=== PATIENT | female | born 1940 | race Caucasian/White ===

== ENCOUNTER 2017-06-14 19:45 | Inpatient (IN) | payer MEDICARE, OTHER ==
[~2017-06-14] VITALS: Ht 172.7 cm; Wt 82.6 kg
--- NOTE | ~2017-06-14 | PR ---
[place], [place] PROGRESS NOTE NAME: KATHARINE MCDANIEL UNIT #: [id number] ROOM: 526 DOCTOR: BHARGAV ANDRES MD,NAV BIRTHDATE: [birth year] DOS: 06/17/2017 SUBJECTIVE: The patient was noted comfortable at this time, resting on the bed without any acute distress. Denies symptoms of chest pain or hemoptysis. OBJECTIVE: VITAL SIGNS: The patient has a normal temperature, respiratory rate recorded as 22, heart rate of 94, blood pressure 150/68. HEENT: Examination shows no acute change. NECK: Supple. CARDIOVASCULAR: S1, S2 is audible. LUNGS: The patient was noted without any wheezing or crackles at present time. ABDOMEN: Soft, nontender. EXTREMITIES: The patient noted without any acute edema. LABORATORY DATA: CBC today: WBC count 14.8, hemoglobin 11.3, hematocrit 34.3, platelet count was normal. BMP: Glucose 163, BUN and creatinine was normal. IMPRESSION: Stable respiratory status with acute exacerbation of chronic obstructive pulmonary disease for this patient noted partial reduction of respiratory symptoms. The cough has been noted decreased. The shortness of breath has been still noted for the patient with partial reduction, but not resolved completely to the baseline. PLAN OF MANAGEMENT: Continuation of bronchodilators, oxygen supplementation, corticosteroids. The patient current dose. Monitor respiratory status closely. NAV DURANT MD CM:PNTRANS [id number] NAV ANDRES MD 06/17/17 1239 interface
--- NOTE | ~2017-06-14 | PR ---
[place], [place] PROGRESS NOTE NAME: KATHARINE MCDANIEL UNIT #: [id number] ROOM: 526 DOCTOR: BHARGAV ANDRES MD,NAV BIRTHDATE: [birth year] DOS: 06/18/2017 SUBJECTIVE: The patient has been noted with unconsciousness at this time. She lapse to the unconscious in the last 24 hours. She has been comfortably resting otherwise, the family member including her present at bedside with the patient. OBJECTIVE: VITAL SIGNS: Normal temperature, respiratory rate 20, heart rate of 96, blood pressure 119/70. Pulse oxygen saturation on 4 liters nasal cannula 92% saturation. HEENT: Examination shows head was atraumatic. Eyes, no icterus. NECK: Supple. CARDIOVASCULAR: S1, S2 audible. LUNGS: The patient showed moderate decreased breath sounds, expiratory wheezing without any crackles. ABDOMEN: Soft, nontender. LABORATORY DATA: The patient's arterial blood gas, pH of 7.32, pCO2 of 63, pO2 125, 4 liter nasal cannula this morning. IMPRESSION: 1. The patient with progressive acute on chronic hypercapnic and hypoxic respiratory failure with exacerbation of chronic obstructive pulmonary disease, change in mental status secondary to respiratory failure and hypercapnia. PLAN OF MANAGEMENT: The current assessment, management discussed with patient's . The patient's code status noted comfort care. The BiPAP treatment was offered for this patient, but he stated this was not the patient's wish. The patient continue to be treated at this time with current treatment, prognosis of the patient remains guarded. NAV DURANT MD CM:PNTRANS [id number] NAV ANDRES MD 06/19/17 0056 interface
--- NOTE | ~2017-06-14 | PR ---
[place], [place] PROGRESS NOTE NAME: KATHARINE MCDANIEL UNIT #: [id number] ROOM: 526 DOCTOR: BHARGAV ANDRES MD,NAV BIRTHDATE: [birth year] DOS: 06/19/2017 SUBJECTIVE: The patient was noted to be awake and arousable. The patient awoke with commands. He has been noted essentially very weak and cannot speak because of that. Not noted with any distress this morning. OBJECTIVE: VITAL SIGNS: For the patient which has been recorded showed normal temperature, respiratory rate 20, heart rate of 113, blood pressure 158/81. The pulse oxygen saturation of the patient 4 liters 90% saturation. HEENT: No acute change. NECK: Supple. CARDIOVASCULAR: S1, S2 audible. LUNGS: Without any crackles. Diffuse expiratory wheezing with reduced breath sounds bilaterally. ABDOMEN: Soft, nontender. IMPRESSION: The patient with change in mental status with ongoing acute exacerbation of chronic obstructive pulmonary disease, acute tracheobronchitis. PLAN OF MANAGEMENT: No change in the plan of management. The patient has been assessed for hospice services, to be admitted under hospice services most likely today. No changes in medical management today would be advised. NAV DURANT MD CM:PNTRANS [id number] NAV ANDRES MD 06/20/17 0141 interface
--- NOTE | ~2017-06-14 | EKG ---
[place], [place] ELECTROCARDIOGRAM REPORT NAME: KATHARINE MCDANIEL UNIT #: [id number] ROOM: 526 DOCTOR: CINDY GONZALEZ,NEETA BIRTHDATE: [birth year] DOS: 06/18/2017 TIME: 0020 IMPRESSION: 1. Atrial fibrillation with controlled ventricular rate. 2. Old anterior infarction. 3. Lateral ST changes. 4. Normal QT interval. NEETA WHITE MD CM:EKGRPT:ELECTROCARDIOGRAM REPORT [id number] NEETA WHITE MD
--- NOTE | ~2017-06-14 | CON ---
[place], [place] REPORT OF CONSULTATION NAME[id number] UNIT #: [id number] ROOM: 526 DOCTOR: NEETA WHITE MD BIRTHDATE: [birth year] DOS: 06/18/2017 REASON FOR CONSULTATION: Atrial fibrillation. CONSULTING PHYSICIAN: Dr. Rodriguez. CLINICAL HISTORY: The patient is a 77-year-old patient with history of hypertension, COPD, home oxygen, was brought to the Emergency Room for progressive shortness of breath for the past few weeks. Apparently, she called her labor economist, Dr. Clinton and she was told to go to Emergency Room. She came to Emergency Room for shortness of breath and she was admitted to the hospital and Cardiology was consulted for her atrial fibrillation Her main complaint is probably shortness of breath and also some nonproductive cough and weakness. By the time of my examination, the patient was mostly asleep and lethargic hence history was obtained from the chart as well as her family members who were at bedside. Review of the 10 systems are limited due to patient's mental status and history was obtained from the chart and basically patient came for progressive shortness of breath, generalized weakness, and decreased appetite. Per family, there is no chest pain, palpitations, or syncope. PAST MEDICAL HISTORY: 1. COPD, the patient was on home oxygen. 2. ____ hypothyroidism. 3. Depression and anxiety. PAST SURGICAL HISTORY: History of bronchoscopy, cardiac catheterization. SOCIAL HISTORY: The patient does not smoke or drink. She was a former smoker for about 50 years, but she quit smoking. ALLERGIES: No known drug allergies. FAMILY HISTORY: Nil contributory. Mother from metastatic rectal cancer. Father from myocardial infarction at the age of 52. HOME MEDICATIONS: Reviewed. PHYSICAL EXAMINATION: VITAL SIGNS: Blood pressure 142/96, pulse 118, respirations 20. Weight 82.6 kilos, BMI 27.7. GENERAL: The patient was asleep and lethargic, but arousable and on questioning, she denies any chest pains. HEENT: Pupils are round and no jaundice. Tongue was moist. NECK: Supple, no distended neck veins. No carotid bruit. CHEST: Nontender. LUNGS: A few scattered rhonchi, diminished at bases. HEART: Irregularly irregular, tachycardic, grade 1/6 systolic murmur. ABDOMEN: Bowel sounds are normal. EXTREMITIES: Showed trace edema. Distal pulses are fair. SKIN: Warm and dry. No cyanosis, no clubbing. [place], [place] REPORT OF CONSULTATION NAME: KATHARINE MCDANIEL UNIT #: [id number] ROOM: 526 DOCTOR: CINDY GONZALEZ,NEETA BIRTHDATE: [birth year] NEUROLOGIC: Unable to assess due to patient's mental status and lethargy. DIAGNOSTIC TESTS: Her EKG, labs, and imaging studies reviewed as available. EKG, atrial fibrillation with rapid ventricular rate, old anterior infarction, anterolateral ST changes. Hemoglobin 11.3, potassium 3.9, creatinine 0.79, magnesium 2.7. TSH is 0.29, T4 1.4. IMPRESSION: 1. Atrial fibrillation with rapid ventricular rate, new onset. 2. High CHADS2-VASc score of at least 4. 3. Hypertension. 4. Possible sepsis. 5. Chronic obstructive pulmonary disease exacerbation. RECOMMENDATIONS: Continue her low dose metoprolol if she can take p.o. If not, we have to change her to IV. I had a long discussion with her family member regarding risks and benefits of the anticoagulation. Start Lovenox for now and again the family is agreeable. I would recommend Eliquis. Consider getting a 2D echo for LV function and to rule out thrombus. This conservative medical therapy with no aggressive testing ____ due to her other comorbid conditions and also family is considering comfort care. Pulmonary is also on case for her dyspnea, COPD exacerbation, and further treatment is per Dr. Rodriguez. NEETA WHITE MD CM:CONSTR:REPORT OF CONSULTATION 06/19/17 540 interface
--- NOTE | ~2017-06-14 | CON ---
[place], [place] REPORT OF CONSULTATION NAME: KATHARINE MCDANIEL [facility] #: [id number] UNIT #: [id number] ROOM: 526 DOCTOR: NAV NUGENT MD BIRTHDATE: [birth year] DOS: 06/15/2017 CONSULTATION REQUESTED BY: Hospitalist. REASON FOR CONSULTATION: Assessment for COPD. HISTORY OF PRESENT ILLNESS: A 77-year-old white female who has been noted with chronic dependency on prednisone with advanced end-stage COPD with emphysema as well as hypoxic respiratory failure. The patient has been treated about 2-3 times for the last 4-5 weeks because of recurrent exacerbation of chronic obstructive pulmonary disease. The patient has been treated with antibiotic recently and a burst of prednisone as well. She has been noted with worsening of respiratory symptoms, increased shortness of breath, coughing that has been noted intermittently, sometimes sputum expectoration, greenish in color. She denies symptoms of hemoptysis. Denies symptoms of chest pain. The wheezing was noted intermittently. She has been advised to go to the Emergency Room as she contacted me yesterday. She has been assessed in the Emergency Room, currently hospitalized for medical management of acute exacerbation of chronic obstructive pulmonary disease with failed outpatient treatment. REVIEW OF SYSTEMS: CONSTITUTIONAL: Fatigue and tiredness reported. Denies symptoms of fever or chills. EYES: Denies any burning, redness, or tenderness. EARS, NOSE, THROAT: No sore throat, hoarseness, otalgia, postnasal drainage. CARDIOVASCULAR: Denies anginal pain, edema, pain of the lower extremities. GASTROINTESTINAL: No dysphagia, nausea, vomiting, diarrhea, abdominal pain, hematemesis, melena, hematochezia, or dysphagia. Denies symptoms of abnormal weight loss. SKIN: Denies lesions or rashes. MUSCULOSKELETAL: The patient was noted without any acute deformities. There was no pain in any joints was noted. CENTRAL NERVOUS SYSTEM: The patient noted general weakness and fatigue, but there were no focal neurologic deficits, seizures, or tingling sensation of the extremities. Remaining systems were reviewed. They were noted all negative. PAST MEDICAL HISTORY: 1. Advanced COPD with FEV1 less than 20%. 2. Chronic hypoxic respiratory failure. 3. Degenerative arthritis of the spine. 4. Past cardiomyopathy, which was resolved. 5. Anxiety disorder. 6. Chronic hypoxic respiratory failure, use of oxygen 3-4 liter nasal cannula. 7. General anxiety disorder. 8. History of essential hypertension. 9. History of hypothyroidism. PAST SURGICAL HISTORY: 1. Cardiac catheterization. [place], [place] REPORT OF CONSULTATION NAME: KATHARINE MCDANIEL UNIT #: [id number] ROOM: 526 DOCTOR: NAV NUGENT MD BIRTHDATE: [birth year] 2. Therapeutic bronchoscopies. 3. Surgery on the broken leg. SOCIAL HISTORY: The patient is , has 2 children, lived at home. Smoking noted from the age of 18-year-old, smoked about a pack of cigarettes per day until 2011. There was no history of alcohol use or any illicit drugs. FAMILY HISTORY: The patient's father at the age of 52-year-old, complication of acute myocardial infarction. Mother at the age of 66-year-old, complication of metastatic rectal cancer. CURRENT MEDICATIONS: Administered noted use of Fosamax, trazodone, metoprolol succinate, multivitamin, lisinopril, levothyroxine, vitamin D, Dulera, Mucinex, IV Solu-Medrol 60 mg b.i.d., DuoNeb q.4 hours, Levaquin, and other p.r.n. medications administration. The patient also takes prednisone daily dose at home. DRUG ALLERGIES: Noted for no known drug allergies. PHYSICAL EXAMINATION: GENERAL: A 77-year-old female who has been noted currently awake and alert, sitting on the bed. Height of 5 feet 8 inches, weight 182 pounds, BMI 27, mera face is noted secondary to chronic use of steroids. VITAL SIGNS: Otherwise noted normal temperature, respiratory rate 23, heart rate 85-90, blood pressure 197/111-133/74. The pulse oxygen saturation noted on 4 liter nasal cannula 100%. HEENT: Neck was supple. Head was atraumatic. Eyes nonicterus. CARDIOVASCULAR SYSTEM: S1, S2 audible. LUNGS: Diffuse reduction in the breath sounds. The patient has poor air exchange with expiratory wheezing, no crackles. ABDOMEN: Soft, nontender. EXTREMITIES: Showed minimal ankle edema. SKIN: Visible skin, no lesions or rashes except for bruising of the skin secondary to chronic prednisone use was noted. CENTRAL NERVOUS SYSTEM: Cranial nerves 2-12 intact. No focal deficit. MUSCULOSKELETAL: Without any acute deformities. LABORATORY DATA: The lactic acid yesterday 1.3. CBC yesterday noted WBC count 13.8, hemoglobin and hematocrit normal, platelet count was normal. PT/INR yesterday was noted as normal. Troponin addition of 2 sets yesterday and this morning, normal. The chest x-ray shows severe COPD changes without any acute infiltration or other abnormalities. IMPRESSION: 1. The patient who has been currently admitted to the hospital, failed outpatient treatment with a history of chronic hypoxic respiratory failure with acute exacerbation and acute bronchitis. 2. History of chronic steroid use as well for the patient's mera facies noted with some effect of use of chronic steroid dependency. 3. History of hypertension, hypothyroidism, and general anxiety disorder. [place], [place] REPORT OF CONSULTATION NAME: KATHARINE MCDANIEL UNIT #: [id number] ROOM: 526 DOCTOR: BAHRGAV ANDRES MD,NAV BIRTHDATE: [birth year] PLAN OF TREATMENT: Agree with current use of corticosteroids 60 mg b.i.d. Continue current antibiotics, bronchodilators, monitor respiratory symptoms closely. Continue supportive therapy, plan of management. Further assessment changes of the patient will be made in the next 24 hours based on the improvement and resolution of the current symptom. Other supportive plan of therapy care and other medical management. Usual therapies. Supportive treatments. NAV DURANT MD CM:CONSTR:REPORT OF CONSULTATION 1400 06/16/17 0648 interface
--- NOTE | ~2017-06-14 | PR ---
[place], [place] PROGRESS NOTE NAME: KATHARINE MCDANIEL UNIT #: [id number] ROOM: 526 DOCTOR: NAV NUGENT MD BIRTHDATE: [birth year] DOS: 06/16/2017 SUBJECTIVE: She has been noted this morning, sitting outside of the bed, complaining of shortness of breath, stating that she is not feeling well. The patient denies symptoms of chest pain or any abdominal pain. Denies symptoms of any hemoptysis. OBJECTIVE: VITAL SIGNS: For the patient, which was recorded showed the temperature noted normal, respiratory rate 22, heart rate 94, blood pressure 121/73. Pulse oxygen saturation 4 L nasal cannula 99% saturation. HEENT: Shows head was atraumatic. Eyes nonicterus. NECK: Supple. CARDIOVASCULAR: S1, S2 is audible. LUNGS: The patient was noted without any crackles. Moderate decreased breath sounds noted with expiratory wheezing. ABDOMEN: Soft, nontender. EXTREMITIES: The patient was noted without any edema, clubbing or cyanosis. LABORATORY DATA: BMP this morning; glucose 147, normal BUN and creatinine. CBC this morning; WBC count 14.4, hemoglobin 10.6, hematocrit 32.2, platelet count were normal. IMPRESSION: 1. Ongoing acute exacerbation of chronic obstructive pulmonary disease, acute tracheobronchitis at this time noted with the use of the corticosteroids at this time. 2. History of chronic long-term dependent on the steroids as well. PLAN OF MANAGEMENT: No changes in the medical treatment would be necessary. Continue current dose of corticosteroids, bronchodilators. Monitor respiratory symptoms. The patient's respiratory status essentially remains unchanged with the physical examination as of yesterday. [place], [place] PROGRESS NOTE NAME: KATHARINE MCDANIEL UNIT #: [id number] ROOM: 526 DOCTOR: NAV NUGENT MD BIRTHDATE: [birth year] NAV DURANT MD CM:PNTRANS 1236 0040 NAV ANDRES MD 06/17/17 0037 interface
[2017-06-14 19:45] VITALS: BP 168/76
[~2017-06-14 19:45] MED LIST: 'XANAX0.5 MG PO; ALBUTEROL0.09 MG/A2 INH; ALBUTEROL2.5 MG/0.5 INH; AMBIEN CR12.5 MG PO; AMBIEN CR6.25 MG PO; AMBIEN10 M1 PO; AMBIEN5 MG PO; ASPIRIN ADULT L81 M3 PO; ATIVAN0.5 MG PO; CEFTIN250 MG PO; CEFUROXIME500 MG PO; DALI500T PO; DELTASONE10 MG PO; FISH OIL 10001000 MG PO; FISH OIL1000 MG PO; FLUONAZOLE100 MG PO; GUAIFENESIN600 MG PO; HUMULIN R100 U/ML SC; K-1010 MEQ PO; KCL PO; LASIX 40MG40 MG/4 ML IV; LASIX20 MG PO; LEVOTHYROXIN0.075 MG PO; LISINOPRIL HCTZ1 TA1 PO; LISINOPRIL-HYDR1 TA1 PO; LISINOPRIL10 MG PO; LISINOPRIL20 MG PO; LOPRESSOR25 MG PO; LOVENOX40 MG/0.4 SC; METOPROLOL SUCC50 M1 PO; MILK OF MA1200 MG/5 PO; MIRALAX17 GM/DOSE PO; MULTIPLE VITAMI1 TAB PO; NITROSTAT0.4 MG SL; Nizoral 2%15 GM T; ORASONE5 MG PO; PHILLIPS' COLO1 EACH PO; PLAVIX300 MG PO; POTASSIUM20 MEQ PO; PREDNISONE10 MG PO; PROAIR HFA8.5 GM INH; PROVENTIL0.09 MG/A1 INH; RITE AID MAGNE500 MG PO; RITE AID MELATON5 MG PO; SERTRALINE50 MG PO; SOLU-MEDROL40 MG IV; SPIRIVA -- 3018 MCG PO; SPIRIVA18 MCG PO; SYMBICORT1 AE1 INH; TOPROL XL50 MG PO; TRAZODO50 MG PO; TUDORZA PRESSAIR INH; TYLENOL325 M2 PO; TYLENOL650 MG R; ULTRAM50 MG PO; VANCOCIN1000 MG/25 IV; VENTOLIN0.09 MG/AC INH; VITAMIN D1000 IU PO; VITAMIN D400 I1 PO; XANAX0.25 MG PO; XANAX0.5 MG PO; ZITHROMAX Z PA250 MG PO; ZITHROMAX250 MG PO; ZOLOFT100 MG PO
[2017-06-14] MEDS ORDERED: SYMB160 INH (19:58)
[2017-06-14] MEDS ORDERED: PROAIR HFA8.5 GM INH (19:58)
[2017-06-14] MEDS ORDERED: XANAX0.5 MG PO (19:59)
[2017-06-14] MEDS ORDERED: PREDNISONE5 MG PO (19:59)
[2017-06-14] MEDS ORDERED: TRAZODONE150 MG PO (20:00)
[2017-06-14] MEDS ORDERED: ULTRAM50 MG PO (20:00)
[2017-06-14] MEDS ORDERED: L-THYROXINE PO (20:02)
[2017-06-14] MEDS ORDERED: METOPROLOL SUCC25 M2 PO (20:02)
[2017-06-14] MEDS ORDERED: SPIRIVA RESPIMAT4 GM INH (20:03)
[2017-06-14] MEDS ORDERED: FOSAMAX70 M1 PO (20:03)
[2017-06-14] MEDS ORDERED: ZESTRIL20 MG PO (20:03)
[2017-06-14] MEDS ORDERED: MELATONIN10 M2 PO (20:08)
[2017-06-14] MEDS ORDERED: MUCINEX ER600 MG PO (20:09)
[2017-06-14] MEDS ORDERED: TUSSIN DM 10 M237 M1 PO (20:10)
[2017-06-14] MEDS ORDERED: FISH OIL + D31 EACH PO (20:11)
[2017-06-14] MEDS ORDERED: [UNRECOGNIZED DRUG - OTHER] (20:11)
[2017-06-14] MEDS ORDERED: VITAMIN D31000 UNI1 PO (20:12)
[2017-06-14] MEDS ORDERED: MILK OF MA400 MG/52 PO (20:13)
[2017-06-14] MEDS ORDERED: ANIMAL CHEWS1 EACH PO (20:13)
[2017-06-14 20:36] LABS: BASO # 0.1 10*3/uL (0.0-0.1); BASO % 0.4 % (0.0-1.0); EOS # 0.8 10*3/uL (0.0-0.4); HEMATOCRIT 39.5 % (37.0-47.0); HEMOGLOBIN 12.6 g/dl (12.0-16.0); LYMPH # 1.1 10*3/uL (1.3-4.4); LYMPH % 8.4 % (27.0-41.0); MEAN CELL VOLUME 95.6 fl (81.0-99.0); MEAN CORPUSCULAR HGB 30.5 pg (27.0-31.0); MEAN CORPUSCULAR HGB CONC 31.9 g/dl (33.0-37.0); MEAN PLATELET VOLUME 10.1 fl (9.6-12.3); MONO # 0.7 10*3/uL (0.1-1.0); MONO % 5.7 % (3.0-9.0); NEUT # 10.2 10*3/uL (2.3-7.9); NEUT % 78.2 % (47.0-73.0); PLATELET COUNT AUTOMATED 299 10*3/uL (130-400); RED BLOOD COUNT 4.13 10*6/uL (4.10-5.10); RED CELL DISTRI WIDTH 12.5 % (0-14.5)
[2017-06-14 20:51] VITALS: BP 165/70
[2017-06-14 20:55] LABS: ALBUMIN 3.5 gm/dl (3.1-4.5); ALKALINE PHOSPHATASE 51 U/L (45-117); BUN 17 mg/dl (7-24); CHLORIDE 95 mmol/L (98-107); CREATININE 0.74 mg/dL (0.55-1.02); LIPASE 43 U/L (73-393); POTASSIUM 3.8 mmol/L (3.5-5.1); SGOT/AST 21 IU/L (3-35); SGPT/ALT 25 U/L (12-78); SODIUM 140 mmol/L (136-145); TOTAL PROTEIN 7.1 gm/dL (6.4-8.2)
[2017-06-14 20:59] LABS: TROPONIN I < 0.015 ng/ml (<0.045)
[2017-06-14 22:00] VITALS: BP 159/90
[2017-06-14 22:24] VITALS: BP 197/111
[2017-06-15] VITALS: BP 158/83
[2017-06-15 03:15] LABS: HEMATOCRIT 36.4 % (37.0-47.0); HEMOGLOBIN 11.8 g/dl (12.0-16.0); MEAN CELL VOLUME 95.5 fl (81.0-99.0); MEAN CORPUSCULAR HGB CONC 32.4 g/dl (33.0-37.0); PLATELET COUNT AUTOMATED 263 10*3/uL (130-400); RED BLOOD COUNT 3.81 10*6/uL (4.10-5.10); RED CELL DISTRI WIDTH 12.3 % (0-14.5); WHITE BLOOD COUNT 11.9 10*3/uL (4.8-10.8)
[2017-06-15 03:29] LABS: ALBUMIN 3.1 gm/dl (3.1-4.5); ALKALINE PHOSPHATASE 44 U/L (45-117); BUN 18 mg/dl (7-24); CHLORIDE 98 mmol/L (98-107); CREATININE 0.68 mg/dL (0.55-1.02); HDL CHOLESTEROL 78 mg/dl (40-60); POTASSIUM 4.5 mmol/L (3.5-5.1); SGOT/AST 19 IU/L (3-35); SGPT/ALT 27 U/L (12-78); SODIUM 140 mmol/L (136-145); TOTAL PROTEIN 6.3 gm/dL (6.4-8.2); TRIGLYCERIDES 67 mg/dl (<150); VLDL CHOLESTEROL 13 mg/dL (6-40)
[2017-06-15 03:31] LABS: CHOLESTEROL 229 mg/dL (<200); LDL CHOLESTEROL 138 mg/dL (9-159)
[2017-06-15 03:37] LABS: THYROID STIM HORMONE (HS) 0.294 uIU/ml (0.358-4.75)
[2017-06-15 03:43] LABS: PLATELET SUFFICIENCY NORMAL (NORMAL); TOTAL CELLS COUNTED 100 #CELLS
[2017-06-15 08:00] VITALS: BP 150/74
[2017-06-15 08:32] LABS: VITAMIN D, 25-HYDROXY 26.1 ng/mL (30-100)
[2017-06-15 12:00] VITALS: BP 133/74
[2017-06-15 16:00] VITALS: BP 178/93
[2017-06-15 20:00] VITALS: BP 136/83
[2017-06-16] VITALS: BP 112/61
[2017-06-16 06:22] LABS: HEMATOCRIT 32.2 % (37.0-47.0); HEMOGLOBIN 10.6 g/dl (12.0-16.0); MEAN CELL VOLUME 94.2 fl (81.0-99.0); MEAN CORPUSCULAR HGB CONC 32.9 g/dl (33.0-37.0); MEAN PLATELET VOLUME 10.1 fl (9.6-12.3); PLATELET COUNT AUTOMATED 254 10*3/uL (130-400); RED BLOOD COUNT 3.42 10*6/uL (4.10-5.10); RED CELL DISTRI WIDTH 12.4 % (0-14.5); WHITE BLOOD COUNT 14.4 10*3/uL (4.8-10.8)
[2017-06-16 06:51] LABS: PLATELET SUFFICIENCY NORMAL (NORMAL); TOTAL CELLS COUNTED 100 #CELLS
[2017-06-16 06:57] LABS: BUN 17 mg/dl (7-24); CHLORIDE 104 mmol/L (98-107); CREATININE 0.77 mg/dL (0.55-1.02); PHOSPHOROUS 2.1 mg/dL (2.5-4.9); POTASSIUM 3.9 mmol/L (3.5-5.1); SODIUM 141 mmol/L (136-145)
[2017-06-16 08:00] VITALS: BP 121/73
[2017-06-16 12:00] VITALS: BP 102/64
[2017-06-16 16:21] VITALS: BP 155/88
[2017-06-16 20:00] VITALS: BP 163/81
[2017-06-17] VITALS: BP 138/70; BP 193/83
[2017-06-17 06:46] LABS: BASO % 0.2 % (0.0-1.0); HEMATOCRIT 34.3 % (37.0-47.0); HEMOGLOBIN 11.3 g/dl (12.0-16.0); LYMPH # 0.7 10*3/uL (1.3-4.4); LYMPH % 4.5 % (27.0-41.0); MEAN CELL VOLUME 94.8 fl (81.0-99.0); MEAN CORPUSCULAR HGB 31.2 pg (27.0-31.0); MEAN CORPUSCULAR HGB CONC 32.9 g/dl (33.0-37.0); MEAN PLATELET VOLUME 9.9 fl (9.6-12.3); MONO # 0.8 10*3/uL (0.1-1.0); MONO % 5.1 % (3.0-9.0); NEUT % 88.4 % (47.0-73.0); PLATELET COUNT AUTOMATED 278 10*3/uL (130-400); RED BLOOD COUNT 3.62 10*6/uL (4.10-5.10); RED CELL DISTRI WIDTH 12.9 % (0-14.5); WHITE BLOOD COUNT 14.8 10*3/uL (4.8-10.8)
[2017-06-17 07:33] LABS: CHLORIDE 104 mmol/L (98-107); POTASSIUM 3.9 mmol/L (3.5-5.1); SODIUM 141 mmol/L (136-145)
[2017-06-17 07:40] LABS: BUN 17 mg/dl (7-24); CREATININE 0.79 mg/dL (0.55-1.02); PHOSPHOROUS 3.5 mg/dL (2.5-4.9)
[2017-06-17 08:15] VITALS: BP 150/68
[2017-06-17 08:16] VITALS: BP 150/68
[2017-06-17 12:39] VITALS: BP 154/96
[2017-06-17 16:00] VITALS: BP 156/92
[2017-06-17 20:00] VITALS: BP 132/78
[2017-06-18] VITALS: BP 142/94
[2017-06-18 00:21] LABS: ABG BASE EXCESS 6.4 mmol/L (-2.0-2.0); ABG O2 SATURATION 97.5 % (95-97); ARTERIAL BLOOD GAS PCO2 66.7 mmHg (35-45); ARTERIAL BLOOD GAS PH 7.323 (7.35-7.45)
[2017-06-18 08:00] VITALS: BP 119/70
[2017-06-18 12:00] VITALS: BP 128/80
[2017-06-18 16:00] VITALS: BP 102/70
[2017-06-18 20:00] VITALS: BP 118/74
[2017-06-19] VITALS: BP 115/71
[2017-06-19 08:00] VITALS: BP 158/81
== END 2017-06-19 13:01 | disposition hospice, home (50) | DRG 871 ==
LOC: ED 19:45 → EDHOLD 21:07 → 5E 21:07
PROVIDERS: Emergency Medicine Emergency Medical Services; Family Medicine Adult Medicine; Internal Medicine; Internal Medicine Nephrology
DX: A41.9 Sepsis, unspecified organism (principal); J96.21 Acute and chronic respiratory failure with hypoxia; I42.9 Cardiomyopathy, unspecified; I48.91 Unspecified atrial fibrillation; E83.39 Other disorders of phosphorus metabolism; E83.41 Hypermagnesemia; J96.22 Acute and chronic respiratory failure with hypercapnia; J44.1 Chronic obstructive pulmonary disease with (acute) exacerbation; D64.9 Anemia, unspecified; J20.9 Acute bronchitis, unspecified; I10 Essential (primary) hypertension; E03.9 Hypothyroidism, unspecified; F32.9 Major depressive disorder, single episode, unspecified; G89.29 Other chronic pain; M54.5 Low back pain; K59.00 Constipation, unspecified; F41.1 Generalized anxiety disorder; Z78.9 Other specified health status; Z79.899 Other long term (current) drug therapy; Z66 Do not resuscitate; Z51.5 Encounter for palliative care

== ENCOUNTER 2017-06-19 13:12 | Inpatient (IN) | payer OTHER, MEDICARE ==
[~2017-06-19] VITALS: Ht 172.7 cm; Wt 82.6 kg
[2017-06-19 12:00] VITALS: BP 159/92
[~2017-06-19 13:12] MED LIST changes: +ANIMAL CHEWS1 EACH PO; +FISH OIL + D31 EACH PO; +FOSAMAX70 M1 PO; +L-THYROXINE PO; +MELATONIN10 M2 PO; +METOPROLOL SUCC25 M2 PO; +MILK OF MA400 MG/52 PO; +MUCINEX ER600 MG PO; +PREDNISONE5 MG PO; +SPIRIVA RESPIMAT4 GM INH; +SYMB160 INH; +TRAZODONE150 MG PO; +TUSSIN DM 10 M237 M1 PO; +VITAMIN D31000 UNI1 PO; +ZESTRIL20 MG PO; +[UNRECOGNIZED DRUG - OTHER]
[2017-06-19 16:00] VITALS: BP 154/86
[2017-06-19 20:00] VITALS: BP 141/90
== END 2017-06-19 21:08 | disposition expired | DRG 872 ==
LOC: 5E 13:12
DX: A41.9 Sepsis, unspecified organism (principal); J96.11 Chronic respiratory failure with hypoxia; I48.91 Unspecified atrial fibrillation; E83.39 Other disorders of phosphorus metabolism; E83.41 Hypermagnesemia; J44.1 Chronic obstructive pulmonary disease with (acute) exacerbation; D64.9 Anemia, unspecified; G89.29 Other chronic pain; M19.90 Unspecified osteoarthritis, unspecified site; M54.2 Cervicalgia; E03.9 Hypothyroidism, unspecified; F41.9 Anxiety disorder, unspecified; F32.9 Major depressive disorder, single episode, unspecified; I10 Essential (primary) hypertension; Z87.891 Personal history of nicotine dependence; Z80.41 Family history of malignant neoplasm of ovary; Z82.49 Family history of ischemic heart disease and other diseases of the circulatory system; K59.00 Constipation, unspecified; J40 Bronchitis, not specified as acute or chronic